=== PATIENT | female | born 1985 | race Caucasian/White ===

== ENCOUNTER 2017-04-24 18:25 | Emergency (ER) | payer OTHER ==
[~2017-04-24] VITALS: Ht 157.5 cm; Wt 82.0 kg
[2017-04-24 18:29] VITALS: BP 127/64; PULSE 71; RESP 16; TEMP 98.5
[2017-04-24] MEDS ORDERED: IBUP800T23 PO (18:43)
[2017-04-24] MEDS ORDERED: ROBA750T PO (18:51)
[2017-04-24] MEDS ORDERED: IBUP-232 PO (18:51)
--- NOTE | 2017-04-24 18:59 | PD ---
HPI Chief Complaint: Injury Time Seen by Provider: 18:30 Travel History International Travel<30 days: No Contact w/Intl Traveler<30days: No Traveled to known affect area: No History of Present Illness HPI 32-year-old female presents to the emergency room for evaluation of 2 several complaints. First complaint is left middle back pain for the past 5 days. Pain started after patient lifted a heavy box. States she has been taking 800 mg ibuprofen every 6 hours without any relief in symptoms. Patient states pain seems to be worsening and is now radiating into her upper shoulder and around into her breast. She denies any paresthesias. Patient also complains of left radial wrist pain after slamming it on a dresser. States this pain is not as severe as her shoulder pain. PFSH Past Medical History Medical History: Denies Significant Hx ?: Not LMP: 04/01/17 Past Surgical History Surgical History: No Previous Surgery Social History Alcohol Use: No Tobacco Use: No Allergies-Medications (Allergen,Severity, Reaction): Coded Allergies: No Known Allergies (Unverified , 04/24/17) Reported Meds & Prescriptions Reported Meds & Active Scripts Active Robaxin (Methocarbamol) 750 Mg Tab 750 Mg PO Q8HR Ibuprofen 600 Mg Tab 600 Mg PO Q8H PRN Reported Ibuprofen 800 Mg Tab 800 Mg PO Q8H PRN Review of Systems Except as stated in HPI: all other systems reviewed are Neg Physical Exam Narrative GENERAL: Well-nourished, well-developed female in no acute distress. Afebrile. Ambulatory. SKIN: Focused skin assessment warm/dry. HEAD: Normocephalic. EYES: No scleral icterus. No injection or drainage. NECK: Supple, trachea midline. No JVD or lymphadenopathy. CARDIOVASCULAR: Regular rate and rhythm without murmurs, gallops, or rubs. RESPIRATORY: Breath sounds equal bilaterally. No accessory muscle use. BACK: No obvious deformity. No CVA tenderness. Tenderness to palpation of the left paraspinous musculature in the thoracic side. MSK: Bilateral upper extremities are 5/5 strength and equal. Full range of motion of upper extremities bilaterally. 2+ radial pulses bilaterally. Radial , ulnar, and median nerves are intact bilaterally. No edema. Data Data Last Documented VS Vital Signs Date Time Temp Pulse Resp B/P Pulse Ox O2 Delivery O2 Flow Rate FiO2 04/24/17 19:07 72 18 128/68 99 04/24/17 18:29 98.5 [facility] Medical Decision Making Medical Screen Exam Complete: Yes Emergency Medical Condition: Yes Medical Record Reviewed: Yes Differential Diagnosis Muscle spasm, strain, sprain, fracture Narrative Course 32-year-old female presents to the emergency room for 2 complaints. First complaint involves muscle strain/spasm of the left thoracic paraspinous musculature after patient lifted a heavy box 5 days ago. Physical exam is reassuring. No midline tenderness. Patient has full range of motion and intact strength of bilateral upper 70s. Both are neurovascularly intact. Second complaint is left medial wrist pain after striking it on a dresser 2 days ago. Physical exam reveals no erythema, ecchymosis, edema. No indication for imaging at this time. This is muscle strain/spasm and contusion. Patient discharged with perception for ibuprofen and Robaxin. Told to follow-up with a primary care physician or return for worsening symptoms. She understands and agrees to plan. Diagnosis Primary Impression: Spasm of thoracic back muscle Referrals: Primary Care Physician Patient Instructions: General Instructions, Muscle Spasm (ED) Additional Instructions: Rest and drink plenty of fluids. Take Robaxin as directed, as needed for pain. Take ibuprofen with food as directed, as needed for pain. Apply ice to the affected area for 20 minutes at a time, as needed for pain and swelling. Follow-up with a primary care physician. Return to the emergency room for worsening symptoms. Med/Other Pt SpecificInfo: Prescription(s) given Scripts Methocarbamol (Robaxin)750 Mg [id number] Mg PO Q8HR #15 TAB Ref 0 Prov:Neil Angulo MD 04/24/17 Ibuprofen 600 Mg [id number] Mg PO Q8H PRN (PAIN) #21 TAB Ref 0 Prov:Neil Angulo MD 04/24/17 Disposition: 01 DISCHARGE HOME Condition: Stable Lorena Zee Apr 24, 2017 18:59
[2017-04-24 19:07] VITALS: BP 128/68
== END 2017-04-24 19:08 | disposition home or self-care (01) ==
LOC: PHEFT 18:25
DX: M62.830 Muscle spasm of back (principal); S66.912A Strain of unspecified muscle, fascia and tendon at wrist and hand level, left hand, initial encounter; S60.212A Contusion of left wrist, initial encounter; M25.512 Pain in left shoulder; W22.09XA Striking against other stationary object, initial encounter
CPT/HCPCS: 99283